=== PATIENT | male | born 1985 | race Caucasian/White ===

== ENCOUNTER 2022-09-25 11:01 | Emergency (ER) | payer BC ==
[2022-09-25] MEDS ORDERED: BABY ASPIRIN 81 MG CHEW PO ONE (11:11)
[2022-09-25 11:14] VITALS: O2SAT 97
[2022-09-25] MEDS ORDERED: Sodium Chloride 0.9% 1000 ML 1,000 ML IV SCH (11:15)
[2022-09-25] MEDS ORDERED: Sodium Chloride 0.9% 1000 ML 1,000 ML ONE (11:33)
[2022-09-25] MEDS ORDERED: BABY ASPIRIN 81 MG CHEW ONE (11:33)
[2022-09-25 11:37] LABS: Absolute Neutrophil Ct (ANC) 4.13 x10^3/uL (1.4-6.9); Basophil (Absolute #) 0.09 x10^3/uL (0-0.4); Eosinophil % 3.1 % (0.00-5.0); Eosinophil (Absolute #) 0.25 x10^3/uL (0-0.5); Hematocrit 45.6 % (42-50); Hemoglobin 15.3 g/dL (12.5-18.0); Lymphocyte (Absolute #) 2.62 x10^3/uL (1.0-4.6); Lymphocytes % 32.7 % (24.0-44.0); Mean Cell Volume 93.6 fL (78-100); Mean Corpuscular Hemoglobin 31.4 pg (26-32); Mean Corpuscular Hgb Concent. 33.6 g/dL (32-36); Mean Platelet Volume 9.5 fL (7.5-11.0); Monocyte (Absolute #) 0.76 x10^3/uL (0.0-1.3); Monocytes % 9.5 % (0.0-12.0); Neutrophil % 51.5 % (36.0-66.0); Platelet Count 428 x10^3/uL (150-450); Red Blood Count 4.87 x10^6/uL (4.1-5.6); Red Cell Distribution Width 12.1 % (11.5-14.0)
[2022-09-25 11:39] LABS: Erythrocyte Sedimentation Rate 40 mm/hr (0-15)
[2022-09-25 11:50] LABS: ALBUMIN 4.3 g/dL (3.5-5.0); ALKALINE PHOSPHATASE 106 U/L (38-126); ANION GAP 12.5 MEQ/L (5-15); BLOOD UREA NITROGEN 16 mg/dL (9-20); CHLORIDE 107 mmol/L (98-107); Calcium 8.9 mg/dL (8.4-10.2); Carbon Dioxide 24 mmol/L (22-30); Creatinine 1 1.15 mg/dL (0.66-1.25); EST GLOMERULAR FILTRATION RATE > 60.0 ML/MIN; Glucose 115 mg/dL (74-106); Potassium 4.2 mmol/L (3.5-5.1); SGOT/AST 30 U/L (17-59); SGPT/ALT 31 U/L (0-50); SODIUM 139 mmol/L (137-145); Total Protein 7.9 g/dL (6.3-8.2)
[2022-09-25 12:18] LABS: Appearance CLEAR (CLEAR); Bilirubin NEGATIVE (NEGATIVE); Dipstick done @ ? MAIN LAB; Glucose NEGATIVE (NEGATIVE); Ketones NEGATIVE (NEGATIVE); Nitrite NEGATIVE (NEGATIVE); Protein,Urine Dip NEGATIVE (Negative); RBC TRACE-INTACT Ery/ul (0-5); Specific Gravity 1.025 (1.005-1.025); Urobilinogen 0.2 mg/dL (0-1)
[2022-09-25 12:32] LABS: Urine Cultured Indicated? NO
--- NOTE | 2022-09-25 12:48 | ERPHSYRPT ---
- History of Present Illness Time Seen by Provider: 09/25/22 11:10 Historian: patient Exam Limitations: no limitations Patient Subjective Stated Complaint: pt states "I have had this pain in my chest for the past 4 days. The pain is constant." Triage Nursing Assessment: pt ambulated into the er; pt is axo x4; c/o chest pain; pt states 7/10 to left chest; pt states pain with deep breathing; c/o SOB; tenderness with palpitation to left chest; clear apical heart tone; clear lung soudns in all lobes; no edema present; pt denies N/V/D; skin PDW; vitals wnl; pt denies fall, trauma, or injury to chest Physician History: Patient is a 37-year-old white male who presents with a complaint of chest pain left anterior for 4 days. The pain is constant but is worse with a deep breath. He denies any fever chills sweats nausea or vomiting his only risk factor is smoking. 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 Timing/Duration: day(s) (4) Activities at Onset: activity Quality: aching Chest Pain Radiation: no radiation Severity of Pain-Max: moderate Severity of Pain-Current: moderate Nitro Today/Relief: no nitro taken today Aspirin Treatment Today: 325 mg x 1, provided by ED Allergies/Adverse Reactions: No Known Drug Allergies Allergy (Verified 09/25/22 11:02) Hx Tetanus, Diphtheria Vaccination/Date Given: Yes Hx Influenza Vaccination/Date Given: No Hx Pneumococcal Vaccination/Date Given: No Travel Risk - International Travel Have you traveled outside of the country in past 3 weeks: No - Coronavirus Screening Are you exhibiting any of the following symptoms?: No Close contact with a COVID-19 positive Pt in past 14-21 Days: No - Vaccine Status Have you recieved a Covid-19 vaccination: No - Review of Systems Constitutional: No Fever, No Chills Eyes: No Symptoms Ears, Nose, & Throat: No Symptoms Respiratory: No Cough, No Dyspnea Cardiac: Chest Pain, No Edema, No Syncope Abdominal/Gastrointestinal: No Abdominal Pain, No Nausea, No Vomiting, No Diarrhea Genitourinary Symptoms: No Dysuria Musculoskeletal: No Back Pain, No Neck Pain Skin: No Rash Neurological: No Dizziness, No Focal Weakness, No Sensory Changes Psychological: No Symptoms Endocrine: No Symptoms All Other Systems: Reviewed and Negative - Past Medical History Pertinent Past Medical History: No Neurological History: No Pertinent History ENT History: No Pertinent History Cardiac History: No Pertinent History Respiratory History: No Pertinent History Endocrine Medical History: No Pertinent History Musculoskeletal History: No Pertinent History GI Medical History: No Pertinent History History: No Pertinent History Psycho-Social History: No Pertinent History Male Reproductive Disorders: No Pertinent History - Past Surgical History Past Surgical History: No - Social History Smoking Status: Former smoker How long have you smoked: years Exposure to second hand smoke: Yes Alcohol Use: None Drug Use: none Patient Lives Alone: No Significant Family History: no pertinent family hx - Nursing Vital Signs Nursing Vital Signs: Initial Vital Signs Temperature 98.3 F 09/25/22 11:03 Pulse Rate 86 09/25/22 11:03 Respiratory Rate 14 09/25/22 11:03 Blood Pressure 128/86 09/25/22 11:03 O2 Sat by Pulse Oximetry 97 09/25/22 11:03 Pain Scale Pain Intensity 4 - Physical Exam General Appearance: mild distress, alert Eye Exam: PERRL/EOMI, eyes nml inspection Ears, Nose, Throat Exam: normal ENT inspection, moist mucous membranes Neck Exam: normal inspection, non-tender, supple, full range of motion Respiratory Exam: normal breath sounds, lungs clear, No respiratory distress Cardiovascular Exam: regular rate/rhythm, normal heart sounds Gastrointestinal/Abdomen Exam: soft, No tenderness, No mass Back Exam: normal inspection, No CVA tenderness, No vertebral tenderness Extremity Exam: normal inspection, normal range of motion Neurologic Exam: alert, oriented x 3, cooperative, normal mood/affect, sensation nml, No motor deficits Skin Exam: normal color, warm, dry SpO2 Interpretation: normal SpO2: 97 O2 Delivery: Room Air - Course Nursing assessment & vital signs reviewed: Yes EKG Interpreted by Me: RATE (74), Sinus Rhythm, NORMAL AXIS, NORMAL INTERVALS, NORMAL QRS, NORMAL ST-T - Radiology Exams Chest X-ray Interpretation: Interpreted by me, Negative Ordered Tests: Active Orders 24 hr Category Date Time Status EKG-ER Only STAT Care 09/25/22 11:11 Active CHEST 1 VIEW (PORTABLE) Stat Exams 09/25/22 12:24 Taken CBC W DIFF Stat Lab 09/25/22 11:15 Completed CMP Stat Lab 09/25/22 11:15 Completed D-DIMER QUANTITATIVE Stat Lab 09/25/22 11:15 Completed Erythrocyte Sedimentation Rate Stat Lab 09/25/22 11:15 Completed Lactic Acid Stat Lab 09/25/22 11:30 Completed TROPONIN Q4H Lab 09/25/22 11:15 Completed TROPONIN Q4H Lab 09/25/22 15:15 Ordered TROPONIN Q4H Lab 09/25/22 19:15 Ordered UA W/RFX CULTURE Stat Lab 09/25/22 12:10 Completed Medication Summary Generic Name Dose Route Start Last Admin Trade Name Freq PRN Reason Stop Dose Admin Sodium Chloride 1,000 mls @ 100 mls/hr 09/25/22 11:15 09/25/22 11:34 Sodium Chloride 0.9% 1000 Ml IV 10/25/22 11:14 100 mls/hr .Q10H KENDRA Administration Discontinued Medications Generic Name Dose Route Start Last Admin Trade Name Freq PRN Reason Stop Dose Admin Aspirin 324 mg 09/25/22 11:11 09/25/22 11:34 Aspirin 81 Mg Tab.Chew PO 09/25/22 11:12 324 mg STAT ONE Administration Aspirin Confirm 09/25/22 11:33 Aspirin 81 Mg Tab.Chew Administered 09/25/22 11:34 Dose 324 mg .ROUTE .STK-MED ONE Lab/Rad Data: Laboratory Result Diagrams 09/25/22 11:15 09/25/22 11:15 Laboratory Results 09/25/22 09/25/22 09/25/22 Range/Units 12:10 11:30 11:15 WBC (4.0-10.5) x10^3/uL RBC (4.1-5.6) x10^6/uL Hgb (12.5-18.0) g/dL Hct (42-50) % MCV (78-100) fL MCH (26-32) pg MCHC (32-36) g/dL RDW (11.5-14.0) % Plt Count (150-450) x10^3/uL MPV (7.5-11.0) fL Gran % (36.0-66.0) % Immature Gran % (Auto) (0.00-0.4) % Nucleat RBC Rel Count (0.00-0.1) % Eos # (Auto) (0-0.5) x10^3/uL Immature Gran # (Auto) (0.00-0.03) x10^3u/L Absolute Lymphs (auto) (1.0-4.6) x10^3/uL Absolute Monos (auto) (0.0-1.3) x10^3/uL Absolute Nucleated RBC (0.00-0.01) x10^3u/L Lymphocytes % (24.0-44.0) % Monocytes % (0.0-12.0) % Eosinophils % (0.00-5.0) % Basophils % (0.0-0.4) % Absolute Granulocytes (1.4-6.9) x10^3/uL Basophils # (0-0.4) x10^3/uL ESR (0-15) mm/hr D-Dimer (0.0-0.50) mg/L Sodium (137-145) mmol/L Potassium (3.5-5.1) mmol/L Chloride (98-107) mmol/L Carbon Dioxide (22-30) mmol/L Anion Gap (5-15) MEQ/L BUN (9-20) mg/dL Creatinine (0.66-1.25) mg/dL Estimated GFR ML/MIN Glucose (74-106) mg/dL Lactic Acid 1.1 (0.4-2.0) Calcium (8.4-10.2) mg/dL Total Bilirubin (0.2-1.3) mg/dL AST (17-59) U/L ALT (0-50) U/L Alkaline Phosphatase (38-126) U/L Troponin I < 0.012 (0.000-0.034) ng/mL Serum Total Protein (6.3-8.2) g/dL Albumin (3.5-5.0) g/dL Urinalys Dipstick Clnc MAIN LAB Urine Color YELLOW (YELLOW) Urine Appearance CLEAR (CLEAR) Urine pH 7.0 (5-6) Ur Specific Compton 1.025 (1.005-1.025) POC Urine Protein Conf NEGATIVE (Negative) Urine Ketones NEGATIVE (NEGATIVE) Urine Nitrite NEGATIVE (NEGATIVE) Urine Bilirubin NEGATIVE (NEGATIVE) Urine Urobilinogen 0.2 (0-1) mg/dL Urine Leukocytes NEGATIVE (NEGATIVE) Urine WBC (Auto) NONE (0-5) /HPF Urine RBC (Auto) NONE (0-2) /HPF U Epithel Cells (Auto) NONE (FEW) /HPF Urine Bacteria (Auto) NONE (NEGATIVE) /HPF Urine RBC TRACE-INTACT A (0-5) Cirilo/ul Ur Culture Indicated? NO Urine Glucose NEGATIVE (NEGATIVE) mg/dL 09/25/22 09/25/22 09/25/22 Range/Units 11:15 11:15 11:15 WBC 8.0 (4.0-10.5) x10^3/uL RBC 4.87 (4.1-5.6) x10^6/uL Hgb 15.3 (12.5-18.0) g/dL Hct 45.6 (42-50) % MCV 93.6 (78-100) fL MCH 31.4 (26-32) pg MCHC 33.6 (32-36) g/dL RDW 12.1 (11.5-14.0) % Plt Count 428 (150-450) x10^3/uL MPV 9.5 (7.5-11.0) fL Gran % 51.5 (36.0-66.0) % Immature Gran % (Auto) 2.1 H (0.00-0.4) % Nucleat RBC Rel Count 0.0 (0.00-0.1) % Eos # (Auto) 0.25 (0-0.5) x10^3/uL Immature Gran # (Auto) 0.17 H (0.00-0.03) x10^3u/L Absolute Lymphs (auto) 2.62 (1.0-4.6) x10^3/uL Absolute Monos (auto) 0.76 (0.0-1.3) x10^3/uL Absolute Nucleated RBC 0.00 (0.00-0.01) x10^3u/L Lymphocytes % 32.7 (24.0-44.0) % Monocytes % 9.5 (0.0-12.0) % Eosinophils % 3.1 (0.00-5.0) % Basophils % 1.1 (0.0-0.4) % Absolute Granulocytes 4.13 (1.4-6.9) x10^3/uL Basophils # 0.09 (0-0.4) x10^3/uL ESR 40 H (0-15) mm/hr D-Dimer 0.41 (0.0-0.50) mg/L Sodium 139 (137-145) mmol/L Potassium 4.2 (3.5-5.1) mmol/L Chloride 107 (98-107) mmol/L Carbon Dioxide 24 (22-30) mmol/L Anion Gap 12.5 (5-15) MEQ/L BUN 16 (9-20) mg/dL Creatinine 1.15 (0.66-1.25) mg/dL Estimated GFR > 60.0 ML/MIN Glucose 115 H (74-106) mg/dL Lactic Acid (0.4-2.0) Calcium 8.9 (8.4-10.2) mg/dL Total Bilirubin 0.50 (0.2-1.3) mg/dL AST 30 (17-59) U/L ALT 31 (0-50) U/L Alkaline Phosphatase 106 (38-126) U/L Troponin I (0.000-0.034) ng/mL Serum Total Protein 7.9 (6.3-8.2) g/dL Albumin 4.3 (3.5-5.0) g/dL Urinalys Dipstick Clnc Urine Color (YELLOW) Urine Appearance (CLEAR) Urine pH (5-6) Ur Specific Compton (1.005-1.025) POC Urine Protein Conf (Negative) Urine Ketones (NEGATIVE) Urine Nitrite (NEGATIVE) Urine Bilirubin (NEGATIVE) Urine Urobilinogen (0-1) mg/dL Urine Leukocytes (NEGATIVE) Urine WBC (Auto) (0-5) /HPF Urine RBC (Auto) (0-2) /HPF U Epithel Cells (Auto) (FEW) /HPF Urine Bacteria (Auto) (NEGATIVE) /HPF Urine RBC (0-5) Cirilo/ul Ur Culture Indicated? Urine Glucose (NEGATIVE) mg/dL - Progress Progress: unchanged Air Movement: good Blood Culture(s) Obtained: No Antibiotics given: No - Departure Departure Disposition: Home Clinical Impression: Chest wall pain Condition: Stable Critical Care Time: No Referrals: SALVADOR SANDERS [Primary Care Provider] - Follow up/PCP as directed Instructions: Costochondritis (DC) Prescriptions: Methylprednisolone Packet [Medrol Dosepack] 4 mg PO UD #1 packet Diclofenac Sodium 50 mg [Voltaren 50 mg] 50 mg PO TID 10 Days #30 tablet
[2022-09-25 12:55] VITALS: BP 133/83; PULSE 64
--- NOTE | 2022-09-25 12:58 | XRAY ---
Indication: Chest pain. Comparison: December 21, 2012 Portable chest again demonstrates normal heart and lungs with incidental tiny calcified granulomas. Bony thorax intact. No new/acute findings.
== END 2022-09-25 12:57 | disposition home or self-care (01) ==
LOC: ED 11:01
DX: R07.89 Other chest pain (principal); Z28.310 Unvaccinated for COVID-19; Z79.52 Long term (current) use of systemic steroids
CPT/HCPCS: 36000; 36415; 71045; 80053; 81015; 83605; 84484; 85025; 85379; 85652; 93005; 99284; A9270-GY

== ENCOUNTER 2023-06-08 14:38 | Emergency (ER) | payer BC, OTHER ==
[2023-06-08] MEDS ORDERED: XYLOCAINE 1% HCL 20 ML MDV IJ ONE (14:39)
[2023-06-08 14:50] VITALS: BP 114/78; PULSE 90; RESP 18; O2SAT 98
[2023-06-08] MEDS ORDERED: MORPHINE SULFATE 4 MG INJ IM ONE ×2 (14:51→15:41)
[2023-06-08] MEDS ORDERED: MORPHINE SULFATE 4 MG INJ ONE ×2 (14:53→15:42)
[2023-06-08] MEDS ORDERED: Rocephin 1000 MG INJ IM ONE (14:54)
[2023-06-08] MEDS ORDERED: Adacel Vial IM ONE ×2 (14:54→14:58)
[2023-06-08] MEDS ORDERED: Rocephin 1000 MG INJ ONE (14:57)
--- NOTE | 2023-06-08 15:16 | ERPHSYRPT ---
- History of Present Illness Time Seen by Provider: 06/08/23 15:11 Source: patient Exam Limitations: no limitations Patient Subjective Stated Complaint: pt reports approx 30 mins [employer] his right index finger was smashed by an engine stand. denies any other injuries at this t johnny. uknown tetanus status. Triage Nursing Assessment: pt is aox3, pupils perrl, afebrile, resps easy and non labored, pt appears in pain, pt radial pulses strong and equal, cap refill < 2 seconds, pt with an open fracture to the right index finger at the first knuckle, bleeding is minimal at this time. Physician History: Patient is 37-year-old male otherwise healthy was working on his engine where his right index finger was smashed by an engine stand. He came to the emergency room with open wound on middle phalanx of right index finger with visible bone fragments. Patient denies any other injury. Patient has a minimal bleeding at this point of time. Occurred: just prior to arrival Method of Injury: incised Severity of Pain-Max: moderate Severity of Pain-Current: moderate Extremities Pain Location: 2nd finger: right Modifying Factors: Improves With: nothing Associated Symptoms: none Allergies/Adverse Reactions: No Known Drug Allergies Allergy (Verified 06/08/23 14:50) Home Medications: Citalopram Hydrobromide 20 mg* [ceLEXa 20 MG] 10 mg PO DAILY 06/08/23 [History] Hx Tetanus, Diphtheria Vaccination/Date Given: (unk) Hx Influenza Vaccination/Date Given: No Hx Pneumococcal Vaccination/Date Given: No Immunizations Up to Date: Yes Travel Risk - International Travel Have you traveled outside of the country in past 3 weeks: No - Coronavirus Screening Are you exhibiting any of the following symptoms?: No Close contact with a COVID-19 positive Pt in past 14-21 Days: No - Vaccine Status Have you recieved a Covid-19 vaccination: No - Review of Systems Constitutional: No Symptoms Eyes: No Symptoms Ears, Nose, & Throat: No Symptoms Respiratory: No Symptoms Cardiac: No Symptoms Abdominal/Gastrointestinal: No Symptoms Musculoskeletal: Other (open smashed wound right index finger middle phalynx) - Past Medical History Pertinent Past Medical History: No Neurological History: No Pertinent History ENT History: No Pertinent History Cardiac History: No Pertinent History Respiratory History: No Pertinent History Endocrine Medical History: No Pertinent History Musculoskeletal History: No Pertinent History GI Medical History: No Pertinent History History: No Pertinent History Psycho-Social History: No Pertinent History Male Reproductive Disorders: No Pertinent History - Past Surgical History Past Surgical History: Yes Musculoskeletal: Joint Replacement - Social History Smoking Status: Current every day smoker How long have you smoked: years Exposure to second hand smoke: Yes Alcohol Use: None Drug Use: none Patient Lives Alone: No Significant Family History: no pertinent family hx - Nursing Vital Signs Nursing Vital Signs: Initial Vital Signs Pulse Rate 90 06/08/23 14:41 Respiratory Rate 18 06/08/23 14:41 Blood Pressure 114/78 06/08/23 14:41 O2 Sat by Pulse Oximetry 98 06/08/23 14:41 Pain Scale Pain Intensity 10 - Physical Exam General Appearance: no apparent distress Eyes, Ears, Nose, Throat Exam: normal ENT inspection Neck Exam: normal inspection Back Exam: normal inspection Shoulder Exam: normal inspection Elbow/Forearm Exam: normal inspection Wrist Exam: normal inspection Hand Exam: bone tenderness, laceration (right index finger) SpO2: 98 - Course Nursing assessment & vital signs reviewed: Yes - Radiology Exams Hand X-ray Interpretation: Reviewed by me, Displaced Fracture (middle phalynx head) Ordered Tests: Active Orders 24 hr Category Date Time Status Wound Care STAT Care 06/08/23 14:45 Active HAND (MINIMUM 3 VIEWS) Stat Exams 06/08/23 14:45 Taken Medication Summary Discontinued Medications Generic Name Dose Route Start Last Admin Trade Name Freq PRN Reason Stop Dose Admin Ceftriaxone Sodium 1,000 mg 06/08/23 14:54 06/08/23 14:59 Ceftriaxone Sodium 1000 Mg Inj Vial IM 06/08/23 14:55 1,000 mg STAT ONE Administration Ceftriaxone Sodium Confirm 06/08/23 14:57 Ceftriaxone Sodium 1000 Mg Inj Vial Administered 06/08/23 14:58 Dose 1,000 mg .ROUTE .STK-MED ONE Diphtheria/Tetanus/Acell Pertussis 0.5 ml 06/08/23 14:54 06/08/23 14:59 Tdap --Diph,Pertuss(Acell),Tet Vac/Pf 0.5 Ml Vial IM 06/08/23 14:55 0.5 ml .ONCE ONE Administration Diphtheria/Tetanus/Acell Pertussis Confirm 06/08/23 14:58 Tdap --Diph,Pertuss(Acell),Tet Vac/Pf 0.5 Ml Vial Administered 06/08/23 14:59 Dose 0.5 ml IM .STK-MED ONE Morphine Sulfate 4 mg 06/08/23 14:51 06/08/23 14:54 Morphine Sulfate 4 Mg/Ml Injection IM 06/08/23 14:52 4 mg STAT ONE Administration Morphine Sulfate Confirm 06/08/23 14:53 Morphine Sulfate 4 Mg/Ml Injection Administered 06/08/23 14:54 Dose 4 mg .ROUTE .STK-MED ONE - Progress Progress: unchanged Progress Note: 06/08/23 15:25 Dr. Knapp read at [facility] hand surgery department callback he accepted patient. He advised patient to be sent to the [facility] emergency room at [facility]. I informed the patient. Patient will go by private car to [facility]. 1 g ceftriaxone intramuscular given Adacel tetanus toxoid given as well as morphine 4 mg intramuscular given for pain. Discussed with Dr.: Other (Dr Gerry Connor [facility]) Will see patient in: other Counseled pt/family regarding: diagnosis, need for follow-up, rad results Medical Desision Making - Independent Historian Additional History obtained from: Family - Diagnostic Testing Diagnostic test were ordered, analyzed, and reviewed by me: Yes Radiological Interpretation: Reviewed by me - Risk of complications The pt has a high risk of morbidity or mortality based on: Need for major surgery in patient with known risk factors - Departure Departure Disposition: Transfer (via private car to [facility]) Clinical Impression: Displaced fracture of phalanx of right index finger Qualifiers: Encounter type: initial encounter Fracture type: open Phalanx: middle Qualified Code(s): S62.620B - Displaced fracture of middle phalanx of right index finger, initial encounter for open fracture Finger, open wounds with tendon injury Qualifiers: Encounter type: initial encounter Qualified Code(s): S61.209A - Unspecified open wound of unspecified finger without damage to nail, initial encounter Condition: Stable Critical Care Time: Yes Critical Care Time(excluding separately billable procedures): Critical 30-74 mins Referrals: SALVADOR SANDERS [Primary Care Provider] - Follow up/PCP as directed Additional Instructions: Discharge/Care Plan ALEXANDER DRIVER was seen on 06/08/23 in the Emergency Room. The patient was counseled regarding Diagnosis,Lab results, Imaging studies, need for follow up and when to return to the Emergency Room. Prescriptions given: Discharge Note I have spoken with the patient and/or caregivers. I have explained the patient's condition, diagnosis and treatment plan based on the information available to me at this time. I have answered the patient's and/or caregiver's questions and addressed any concerns. The patient and/or caregivers have as good understanding of the patient's diagnosis, condition and treatment plan as can be expected at this point. The vital signs have been stable. The patient's condition is stable and appropriate for discharge from the emergency department. The patient will pursue further outpatient evaluation with the primary care physician or other designated or consulting physician as outlined in the discharge instructions. The patient and/or caregivers are agreeable to this plan of care and follow-up instructions have been explained in detail. The patient and/or caregivers have received these instruction. The patient/and or caregivers are aware that any significant change in condition or worsening of symptoms should prompt an immediate return to this or the closest emergency department or call 911. ALEXANDER DRIVERIN was seen on 06/08/23 n the Emergency Room. At that time you were treated for an emergent condition, during your visit Laboratory, Radiology and/or other procedures may have been ordered. It is very important that you follow-up with your Primary Care Physician SALVADOR SANDERS within the next 24-48 hours to review your Emergency Room visit and the final results of testing that was ordered. Some test results such as Urine Cultures, Blood Cultures, and other cultures if ordered will not be finalized for 24-48 hours. If you do not have a Primary Care Provider please call the medical records department at [phone] to obtain a copy of your results or you may sign into our patient portal to obtain these results by visiting us @ [email or web address] and completing the following steps: 1. Click on the Patient Portal link 2. Click the Patient Self Enrollment Link to complete the enrollment form and entering your 3. Once the enrollment form is completed you will receive an email with a temporary ID and password at the email address you provided. 4. Next choose a user name and password. Your user name must be at least 4 characters long and your password must be at least 4 characters long. 5. Choose a security question from the list and provide your answer to the question. If you already have signed into the Health Portal you may access your Health Care Information 15/04 by the following steps: 1. Login to our website @ [email or web address] 2. Enter your original user name and password. FAQS The [facility] Portal is an online tool that contains your Lab Results, Radiology Reports, Visit History, Discharge Instructions and Health Summary Lab and Radiology Results will not be available for 72 hours on the portal. The Portal is a secure site, passwords are encryted and URLs are re-written so they cannot be copied and pasted. You and authorized family members are the only ones who can access your Portal. Also there is a timeout feature that protects your information if you leave the Portal page open. If you have technical difficulty please use the Contact Us link on the page this will allow you to submit any questions you have regarding the Portal or you may contact the Medical Record Department at [phone] ext [phone].
--- NOTE | 2023-06-08 20:33 | XRAY ---
Indication: Second finger laceration. Comparison: None 3 view right hand demonstrates displaced transverse fracture distal shaft 2nd middle phalanx with bayonet apposition/alignment and soft tissue swelling. No other bony, articular, or soft tissue abnormalities.
== END 2023-06-08 15:54 | disposition short-term general hospital (02) ==
LOC: ED 14:38
DX: S62.620B Displaced fracture of middle phalanx of right index finger, initial encounter for open fracture (principal); S61.200A Unspecified open wound of right index finger without damage to nail, initial encounter; W23.0XXA Caught, crushed, jammed, or pinched between moving objects, initial encounter; Z79.899 Other long term (current) drug therapy; Z28.310 Unvaccinated for COVID-19; Z72.0 Tobacco use; Z23 Encounter for immunization
CPT/HCPCS: 73130; 90471; 90715; 96372; 99284; 99291; J0696; J2270

== ENCOUNTER 2024-11-11 22:07 | Emergency (ER) | payer BC ==
[2024-11-11 22:21] VITALS: TEMP 100
--- NOTE | 2024-11-11 22:29 | ERPHSYRPT ---
- History of Present Illness Time Seen by Provider: 11/11/24 22:29 Source: patient, family Exam Limitations: no limitations Patient Subjective Stated Complaint: tested flu a positive saturday. on tamiflu since then. pt c/o sob and cough. pt states he cannot lie flat due to sob. Triage Nursing Assessment: diminished lung sounds bilaterally. pt anxious due to sob. Physician History: This is a 39-year-old white male patient has a history of depression and is a patient of Dr. Hahn and was brought to the emergency department by family secondary to worsening shortness of breath and coughing since he was diagnosed w ith influenza A on 11/09/2024. His symptoms actually began on 11/07/2024. Despite treatment with Tamiflu, his symptoms are worse especially when he is lying flat. His oxygen saturation on room air was 94% on arrival to the emergency department. He does have mild chest tightness. He has no diagnosed coronary artery disease. Patient does have a history of depression and anxiety. Patient's fever on arrival to the emergency department is 100 F. Patient states that he only checked for flu A and B and not COVID or RSV. Severity of Dyspnea-Max: moderate Severity of Dyspnea-Current: moderate Possible Cause: no prior episodes Modifying Factors: Improves With: coughing, lying down (Makes it worse), rest Associated Symptoms: anxiety, cough, No chest pain/discomfort Allergies/Adverse Reactions: No Known Drug Allergies Allergy (Verified 06/08/23 14:50) Home Medications: Citalopram Hydrobromide 20 mg* [ceLEXa 20 MG] 10 mg PO DAILY 06/08/23 [History] Hx Tetanus, Diphtheria Vaccination/Date Given: (unk) Hx Influenza Vaccination/Date Given: No Hx Pneumococcal Vaccination/Date Given: No Immunizations Up to Date: No Travel Risk - International Travel Have you traveled outside of the country in past 3 weeks: No - Emerging Infectious Disease Are you exhibiting symptoms associated with any current EIDs: No Symptoms: Cough: New Onset, Fever, Shortness of Breath - Review of Systems Constitutional: Fever Eyes: No Symptoms Ears, Nose, & Throat: No Symptoms Respiratory: Cough, Dyspnea Cardiac: No Symptoms Abdominal/Gastrointestinal: No Symptoms Genitourinary Symptoms: No Symptoms Musculoskeletal: No Symptoms Skin: No Symptoms Neurological: No Symptoms Psychological: Anxiety Endocrine: No Symptoms Hematologic/Lymphatic: No Symptoms Immunological/Allergic: No Symptoms All Other Systems: Reviewed and Negative - Past Medical History Pertinent Past Medical History: No Neurological History: No Pertinent History ENT History: No Pertinent History Cardiac History: No Pertinent History Respiratory History: No Pertinent History Endocrine Medical History: No Pertinent History Musculoskeletal History: No Pertinent History GI Medical History: No Pertinent History History: No Pertinent History Psycho-Social History: No Pertinent History Male Reproductive Disorders: No Pertinent History - Past Surgical History Past Surgical History: Yes Musculoskeletal: Joint Replacement Significant Family History: no pertinent family hx - Social History Smoking Status: Former smoker How long have you smoked: years Exposure to second hand smoke: Yes Drug Use: none - Social Determinants of Health Will the patient participate in the screening: Declined to provide - Nursing Vital Signs Nursing Vital Signs: Initial Vital Signs Temperature 100 F 11/11/24 22:08 Pulse Rate 100 H 11/11/24 22:08 Respiratory Rate 20 11/11/24 22:08 Blood Pressure 117/68 11/11/24 22:08 O2 Sat by Pulse Oximetry 94 L 11/11/24 22:08 Pain Scale Pain Intensity 10 - Physical Exam General Appearance: mild distress, alert, anxiety Eye Exam: PERRL/EOMI, eyes nml inspection Ears, Nose, Throat Exam: hearing grossly normal, normal ENT inspection Neck Exam: normal inspection, non-tender, supple, full range of motion Respiratory Exam: normal breath sounds, lungs clear, airway intact, No chest tenderness, No respiratory distress Cardiovascular/Chest Exam: normal heart sounds, regular rate/rhythm, normal peripheral pulses Abdominal/Gastrointestinal Exam: soft, normal bowel sounds, No tenderness Rectal Exam: not done Extremity Exam: non-tender, normal range of motion, normal inspection Neurologic Exam: alert, oriented x 3, cooperative, rheumatology specialist II-XII nml as tested, nml cerebellar function, nml station & gait, sensation nml Skin Exam: normal color, warm, dry Lymphatic Exam: No adenopathy SpO2 Interpretation: borderline oxygenation SpO2: 94 O2 Delivery: Room Air - Course Nursing assessment & vital signs reviewed: Yes Ordered Tests: Active Orders 24 hr Category Date Time Status EKG-ER Only STAT Care 11/11/24 22:52 Active IV Insertion STAT Care 11/11/24 22:52 Active CHEST WITH CONTRAST [CT] Stat Exams 11/12/24 00:09 Completed BLOOD CULTURE Stat Lab 11/11/24 23:30 Received CBC W DIFF Stat Lab 11/11/24 22:52 Completed CMP Stat Lab 11/11/24 22:52 Completed D-DIMER QUANTITATIVE Stat Lab 11/11/24 22:53 Completed Lactic Acid Stat Lab 11/11/24 23:10 Completed MAGNESIUM Stat Lab 11/11/24 22:52 Completed MONO SCREEN Stat Lab 11/11/24 23:36 Completed NT PRO BNPII Stat Lab 11/11/24 22:52 Completed TROPONIN Q4H Lab 11/11/24 23:00 Completed TROPONIN Q4H Lab 11/12/24 03:00 Ordered TROPONIN Q4H Lab 11/12/24 07:00 Ordered Respiratory Therapy Assessment DAILY RT 11/12/24 00:39 Active Medication Summary Discontinued Medications Generic Name Dose Route Start Last Admin Trade Name Freq PRN Reason Stop Dose Admin Hydrocodone Bitart/Acetaminophen 15 ml 11/11/24 23:28 11/12/24 00:23 Hydrocodone/Acetaminophen 5 Ml Udcup PO 11/11/24 23:29 15 ml STAT STA Administration Hydrocodone Bitart/Acetaminophen Confirm 11/11/24 23:59 Hydrocodone/Acetaminophen 5 Ml Udcup Administered 11/12/24 00:00 Dose 15 ml .ROUTE .STK-MED ONE Albuterol Sulfate 2.5 mg 11/12/24 00:33 11/12/24 00:39 Albuterol Sulfate 2.5 Mg/3 Ml Neb IH 11/12/24 00:34 2.5 mg STAT ONE Administration Albuterol Sulfate Confirm 11/12/24 00:37 Albuterol Sulfate 2.5 Mg/3 Ml Neb Administered 11/12/24 00:38 Dose 2.5 mg IH .STK-MED ONE Methylprednisolone Sodium 0 mg 11/11/24 23:29 11/12/24 00:22 Succinate 125 mg/ Sterile IV 11/11/24 23:30 125 mg Water 2 ml STAT ONE Administration Sodium Chloride 500 mls @ 500 mls/hr 11/12/24 00:10 11/12/24 00:27 Sodium Chloride 0.9% 500 Ml IV 11/12/24 01:09 500 mls/hr .Q1H ONE Administration Sodium Chloride Confirm 11/12/24 00:26 Sodium Chloride 0.9% 500 Ml Administered 11/12/24 00:27 Dose 500 mls @ ud IV .STK-MED ONE Methylprednisolone Sodium Succinate Confirm 11/11/24 23:59 Methylprednis Sod Succ 125 Mg/2 Ml Vial Administered 11/12/24 00:00 Dose 125 mg .ROUTE .STK-MED ONE Sterile Water Confirm 11/11/24 23:59 Water For Injection,Sterile 10 Ml Vial Administered 11/12/24 00:00 Dose 10 ml IJ .STK-MED ONE Lab/Rad Data: Laboratory Result Diagrams 11/11/24 22:52 11/11/24 22:52 Laboratory Results 11/11/24 11/11/24 11/11/24 Range/Units 23:58 23:36 23:10 WBC (4.23-9.07) x10^3/uL RBC (4.63-6.08) x10^6/uL Hgb (13.7-17.5) g/dL Hct (40.1-51.0) % MCV (79.0-92.2) fL MCH (25.7-32.2) pg MCHC (32.3-36.5) g/dL RDW (11.6-14.4) % Plt Count (163-337) x10^3/uL MPV (9.4-12.4) fL Gran % (34.0-67.9) % Immature Gran % (Auto) (0.001-0.429) % Nucleat RBC Rel Count (0.00-0.2) % Eos # (Auto) (0.04-0.54) x10^3/uL Immature Gran # (Auto) (0.001-0.031) x10^3u/L Absolute Lymphs (auto) (1.32-3.57) x10^3/uL Absolute Monos (auto) (0.30-0.82) x10^3/uL Absolute Nucleated RBC (0.00-0.012) x10^3u/L Lymphocytes % (21.8-53.1) % Monocytes % (5.3-12.2) % Eosinophils % (0.8-7.0) % Basophils % (0.2-1.2) % Absolute Granulocytes (1.78-5.38) x10^3/uL Basophils # (0.01-0.08) x10^3/uL D-Dimer (0.0-0.50) mg/L Sodium (135-145) mmol/L Potassium (3.5-5.1) mmol/L Chloride (98-107) mmol/L Carbon Dioxide (22-30) mmol/L Anion Gap (5-15) MEQ/L BUN (9-20) mg/dL Creatinine (0.66-1.25) mg/dL Estimated GFR ML/MIN Glucose (74-106) mg/dL Lactic Acid 1.4 (0.4-2.0) Calcium (8.4-10.2) mg/dL Magnesium (1.6-2.3) mg/dL Total Bilirubin (0.2-1.3) mg/dL AST (17-59) U/L ALT (0-50) U/L Alkaline Phosphatase (38-126) U/L Troponin I (0.000-0.033) ng/mL NT-Pro-B Natriuret Pep (<300) pg/mL Serum Total Protein (6.3-8.2) g/dL Albumin (3.5-5.0) g/dL Monoscreen NEGATIVE (NEGATIVE) Influenza Type A Ag NEGATIVE (NEGATIVE) Influenza Type B Ag NEGATIVE (NEGATIVE) RSV (PCR) NEGATIVE (NEGATIVE) SARS-CoV-2 (PCR) NEGATIVE (NEGATIVE) 11/11/24 11/11/24 11/11/24 Range/Units 23:00 22:53 22:52 WBC (4.23-9.07) x10^3/uL RBC (4.63-6.08) x10^6/uL Hgb (13.7-17.5) g/dL Hct (40.1-51.0) % MCV (79.0-92.2) fL MCH (25.7-32.2) pg MCHC (32.3-36.5) g/dL RDW (11.6-14.4) % Plt Count (163-337) x10^3/uL MPV (9.4-12.4) fL Gran % (34.0-67.9) % Immature Gran % (Auto) (0.001-0.429) % Nucleat RBC Rel Count (0.00-0.2) % Eos # (Auto) (0.04-0.54) x10^3/uL Immature Gran # (Auto) (0.001-0.031) x10^3u/L Absolute Lymphs (auto) (1.32-3.57) x10^3/uL Absolute Monos (auto) (0.30-0.82) x10^3/uL Absolute Nucleated RBC (0.00-0.012) x10^3u/L Lymphocytes % (21.8-53.1) % Monocytes % (5.3-12.2) % Eosinophils % (0.8-7.0) % Basophils % (0.2-1.2) % Absolute Granulocytes (1.78-5.38) x10^3/uL Basophils # (0.01-0.08) x10^3/uL D-Dimer 0.93 H* (0.0-0.50) mg/L Sodium 137 (135-145) mmol/L Potassium 3.6 (3.5-5.1) mmol/L Chloride 102 (98-107) mmol/L Carbon Dioxide 21 L (22-30) mmol/L Anion Gap 16.4 H (5-15) MEQ/L BUN 15 (9-20) mg/dL Creatinine 1.45 H (0.66-1.25) mg/dL Estimated GFR 62.1 ML/MIN Glucose 120 H (74-106) mg/dL Lactic Acid (0.4-2.0) Calcium 8.7 (8.4-10.2) mg/dL Magnesium 2.0 (1.6-2.3) mg/dL Total Bilirubin 0.70 (0.2-1.3) mg/dL AST 43 (17-59) U/L ALT 33 (0-50) U/L Alkaline Phosphatase 64 (38-126) U/L Troponin I < 0.012 (0.000-0.033) ng/mL NT-Pro-B Natriuret Pep 148 (<300) pg/mL Serum Total Protein 7.3 (6.3-8.2) g/dL Albumin 4.2 (3.5-5.0) g/dL Monoscreen (NEGATIVE) Influenza Type A Ag (NEGATIVE) Influenza Type B Ag (NEGATIVE) RSV (PCR) (NEGATIVE) SARS-CoV-2 (PCR) (NEGATIVE) 11/11/24 Range/Units 22:52 WBC 7.8 (4.23-9.07) x10^3/uL RBC 4.50 L (4.63-6.08) x10^6/uL Hgb 14.0 (13.7-17.5) g/dL Hct 40.1 (40.1-51.0) % MCV 89.1 (79.0-92.2) fL MCH 31.1 (25.7-32.2) pg MCHC 34.9 (32.3-36.5) g/dL RDW 12.2 (11.6-14.4) % Plt Count 292 (163-337) x10^3/uL MPV 10.0 (9.4-12.4) fL Gran % 67.8 (34.0-67.9) % Immature Gran % (Auto) 0.4 (0.001-0.429) % Nucleat RBC Rel Count 0.0 (0.00-0.2) % Eos # (Auto) 0.15 (0.04-0.54) x10^3/uL Immature Gran # (Auto) 0.03 (0.001-0.031) x10^3u/L Absolute Lymphs (auto) 1.31 L (1.32-3.57) x10^3/uL Absolute Monos (auto) 0.97 H (0.30-0.82) x10^3/uL Absolute Nucleated RBC 0.00 (0.00-0.012) x10^3u/L Lymphocytes % 16.9 L (21.8-53.1) % Monocytes % 12.5 H (5.3-12.2) % Eosinophils % 1.9 (0.8-7.0) % Basophils % 0.5 (0.2-1.2) % Absolute Granulocytes 5.26 (1.78-5.38) x10^3/uL Basophils # 0.04 (0.01-0.08) x10^3/uL D-Dimer (0.0-0.50) mg/L Sodium (135-145) mmol/L Potassium (3.5-5.1) mmol/L Chloride (98-107) mmol/L Carbon Dioxide (22-30) mmol/L Anion Gap (5-15) MEQ/L BUN (9-20) mg/dL Creatinine (0.66-1.25) mg/dL Estimated GFR ML/MIN Glucose (74-106) mg/dL Lactic Acid (0.4-2.0) Calcium (8.4-10.2) mg/dL Magnesium (1.6-2.3) mg/dL Total Bilirubin (0.2-1.3) mg/dL AST (17-59) U/L ALT (0-50) U/L Alkaline Phosphatase (38-126) U/L Troponin I (0.000-0.033) ng/mL NT-Pro-B Natriuret Pep (<300) pg/mL Serum Total Protein (6.3-8.2) g/dL Albumin (3.5-5.0) g/dL Monoscreen (NEGATIVE) Influenza Type A Ag (NEGATIVE) Influenza Type B Ag (NEGATIVE) RSV (PCR) (NEGATIVE) SARS-CoV-2 (PCR) (NEGATIVE) - Progress Progress: improved, re-examined Air Movement: fair Progress Note: 11/12/24 00:39 My medical decision making and the assignment of moderate complexity of this patient's medical issue today is based on review of the patient's past medical history, review of the patient's medication list, review the patient drug allergy list, history present illness and physical findings on examination. The workup in this patient includes CBC, CMP, troponin level, twelve-lead EKG, magnesium level, viral swabs, monotest, D-dimer test. Differential diagnosis includes but is not limited to viral illness, upper respiratory infection, pneumonia, pulmonary embolus, myocardial infarction, CHF 11/12/24 03:01 I interpreted the patient's laboratory data results. Based on the laboratory data results, the patient has elevated D-dimer. We will order CT scan of the chest with contrast. There are no other acute, emergent findings on lab results. The CT scan of the chest was interpreted by the radiologist and I reviewed the impression. The impression states left upper lobe, right upper lobe and left lower lobe central lobar nodules giving a "tree-in-bud" appearance suggestive of infective process. There is scattered ground glass appearance as well. Clinically, the patient states he is feeling much better. His room air oxygen saturation levels have increased to 96 to 97%. He is much more comfortable and his cough is under better control. Blood Culture(s) Obtained: Yes Antibiotics given: Yes Counseled pt/family regarding: lab results, diagnosis, rad results Medical Desision Making - Independent Historian Additional History obtained from: Spouse - Diagnostic Testing Diagnostic test were ordered, analyzed, and reviewed by me: Yes Radiological Interpretation: Reviewed by me, Teleradiologist Report - Risk of complications The pt has a mod risk of morbidity or mortality based on: Need for prescription drug management - Departure Departure Disposition: Home Clinical Impression: Upper respiratory infection, Cough Condition: Stable Critical Care Time: No Referrals: SALVADOR HAHN [Primary Care Provider] - Follow up/PCP as directed Additional Instructions: Drink plenty of fluids. Avoid any exposure to smoke. Take your medications as prescribed. Call your primary care provider today, 11/12/2024, to make arrangements for follow-up appointment for further evaluation management. Prescriptions: Prednisone 10 mg [Deltasone 10 mg] 10 mg PO TID #12 tablet Hydrocodone/Acetaminophen [Hydrocodone-Acetamn 7.5-325/15] 10 ml PO Q8H PRN #120 ml MDD 30 ml PRN Reason: Cough Albuterol 8 gm Mdi Hfa [Ventolin Hfa MDI] 8 gm IH Q4H #1 unit Azithromycin 250 mg [Zithromax 250 MG TABLET] 250 mg PO ZPACK #6 tablet
[2024-11-11 23:01] LABS: Absolute Neutrophil Ct (ANC) 5.26 x10^3/uL (1.78-5.38); BASOPHIL % 0.5 % (0.2-1.2); Basophil (Absolute #) 0.04 x10^3/uL (0.01-0.08); Eosinophil % 1.9 % (0.8-7.0); Eosinophil (Absolute #) 0.15 x10^3/uL (0.04-0.54); Hematocrit 40.1 % (40.1-51.0); IMMATURE GRAN # 0.03 x10^3u/L (0.001-0.031); IMMATURE GRAN % 0.4 % (0.001-0.429); Lymphocyte (Absolute #) 1.31 x10^3/uL (1.32-3.57); Lymphocytes % 16.9 % (21.8-53.1); Mean Cell Volume 89.1 fL (79.0-92.2); Mean Corpuscular Hemoglobin 31.1 pg (25.7-32.2); Mean Corpuscular Hgb Concent. 34.9 g/dL (32.3-36.5); Monocyte (Absolute #) 0.97 x10^3/uL (0.30-0.82); Monocytes % 12.5 % (5.3-12.2); Neutrophil % 67.8 % (34.0-67.9); Platelet Count 292 x10^3/uL (163-337); Red Cell Distribution Width 12.2 % (11.6-14.4); White Blood Count 7.8 x10^3/uL (4.23-9.07)
[2024-11-11 23:14] LABS: ALBUMIN 4.2 g/dL (3.5-5.0); ANION GAP 16.4 MEQ/L (5-15); BILIRUBIN,TOTAL 0.7 mg/dL (0.2-1.3); Calcium 8.7 mg/dL (8.4-10.2); Creatinine 1 1.45 mg/dL (0.66-1.25); EST GLOMERULAR FILTRATION RATE 62.1 ML/MIN; Potassium 3.6 mmol/L (3.5-5.1); Total Protein 7.3 g/dL (6.3-8.2)
[2024-11-11] MEDS ORDERED: solu-MEDROL ONE (23:59)
[2024-11-11] MEDS ORDERED: Sterile H2O 10 ml IJ ONE (23:59)
[2024-11-11] MEDS ORDERED: HYDROCODONE-ACETAMIN 2.5-108/5 ML SOLUTION ONE (23:59)
[2024-11-12] MEDS: solu-MEDROL 125 MG, Sterile H2O 10 ml 2 ML IV ONE (00:22)
[2024-11-12] MEDS: HYDROCODONE-ACETAMIN 2.5-108/5 ML SOLUTION PO STA ×2 (00:23→03:22)
[2024-11-12] MEDS ORDERED: Sodium Chloride 0.9% 500 ML 500 ML IV ONE (00:26)
[2024-11-12] MEDS: Sodium Chloride 0.9% 500 ML 500 ML IV ONE (00:27)
[2024-11-12] MEDS ORDERED: PROVENTIL 2.5 MG/3 ML NEB IH ONE (00:37)
[2024-11-12] MEDS: PROVENTIL 2.5 MG/3 ML NEB IH ONE (00:39)
[2024-11-12 00:46] LABS: INFLUENZA A NEGATIVE (NEGATIVE); INFLUENZA B NEGATIVE (NEGATIVE); RESPIRATORY SYNCTIAL VIRUS NEGATIVE (NEGATIVE); SARS-CoV-2 Xpert Express NEGATIVE (NEGATIVE)
--- NOTE | 2024-11-12 02:47 | XRAY ---
CLINICAL HISTORY: sob; COMPARISON: None. TECHNIQUE: Contiguous 3.[address] images of the chest were acquired with administration of intravenous contrast. Coronal and sagittal reconstructions were obtained.80cc of ISOVUE 370 was administered for post-contrast images. One of the following dose reduction techniques were utilized for this exam: Automated exposure control, adjustment of the mA and/or kV according to patient size, and use of iterative reconstruction FINDINGS: Lungs: Left upper lobar and to a lesser extent left lower and right upper lobar centrilobular nodules give a tree-in-bud appearance, with scattered ground glass densities. Few tiny scattered calcified granulomas. No interstitial changes. No pleural effusion or pleural thickening. Mediastinum: No mediastinal mass or abnormal lymphadenopathy. Reactive-looking mediastinal lymph nodes. Normal appearance of the thymus. Hilar Structures: Normal size and configuration, no enlargement. Heart and Great Vessels: Normal heart size and configuration. No pericardial effusion. Normal caliber and course of the thoracic aorta and other great vessels. No significant atherosclerosis or aneurysm. Normal enhancement of the great vessels post-contrast. Pulmonary Arteries: No evidence of pulmonary embolism. Normal size and course of the pulmonary arteries. Esophagus: Normal course and caliber. No masses or dilatation. Bones: mild spondylotic changes. No fractures or lytic/sclerotic lesions. Normal bone density and alignment. No evidence of rib fractures. Chest Wall: No masses or soft tissue abnormalities. Upper Abdomen: Visualized portions of the liver, spleen, pancreas, adrenal glands, and kidneys are normal. No abnormalities were noted in the visualized upper abdominal organs. Thyroid: Normal size and morphology. No nodules or masses. IMPRESSION: Left upper lobar and to a lesser extent left lower and right upper lobar centrilobular nodules give a tree-in-bud appearance, with scattered ground glass densities, suggesting an infective process with an endobronchial spread of infection, which needs clinical and lab correlation. Electronically Signed by: Cheryl Hatch MD. (11/12/2024 02:43:11 EST)
[2024-11-12] MEDS ORDERED: HYDROCODONE-ACETAMIN 2.5-108/5 ML SOLUTION ONE (03:14)
[2024-11-12] MEDS ORDERED: Levofloxacin 500 MG Tablet ONE (03:57)
[2024-11-12] MEDS: Levofloxacin 500 MG Tablet PO ONE (03:58)
[2024-11-12 04:42] VITALS: BP 102/64; PULSE 80; RESP 18; O2SAT 95
== END 2024-11-12 03:45 | disposition home or self-care (01) ==
LOC: ED 22:07
DX: J06.9 Acute upper respiratory infection, unspecified (principal); R05.1 Acute cough; R06.02 Shortness of breath; Z79.52 Long term (current) use of systemic steroids; Z79.891 Long term (current) use of opiate analgesic; Z79.899 Other long term (current) drug therapy
CPT/HCPCS: 0241U; 36415; 71260; 80053; 83605; 83735; 83880; 84484; 85025; 85379; 86308; 87040; 94640; 96374; 99285; 96375; 99284; J2919; J7609; A9270-GY